=== PATIENT | male | born 1965 | race Caucasian/White ===

== ENCOUNTER 2018-10-02 14:59 | Emergency (ER) | payer MEDICAID ==
[~2018-10-02] VITALS: Ht 185.4 cm; Wt 90.9 kg
[2018-10-02] MEDS ORDERED: ASPI81 PO (15:08)
[2018-10-02] MEDS: KETOROLAC TROMETHAMINE 60 MG/2 ML VIAL IM ONE ×2 (15:46→15:55)
[2018-10-02] MEDS ORDERED: TraMADol HCL 50 MG TABLET PO ONE (16:00)
[2018-10-02 16:08] LABS: BASOPHILS % (AUTO) 0.7 % (0.0-2.0); EOSINOPHILS % (AUTO) 1.5 % (1.0-6.0); HEMATOCRIT 40.9 % (41-53); HEMOGLOBIN 13.5 g/dL (13.5-17.5); LYMPHOCYTES # (AUTO) 1.5 K/uL (1.0-4.8); LYMPHOCYTES % (AUTO) 33.3 % (22.0-44.0); MEAN CORPUSCULAR HEMOGLOBIN 30.2 pg (26.0-34.0); MEAN CORPUSCULAR HGB CONC 33.1 G/dL (31.0-37.0); MEAN CORPUSCULAR VOLUME 91 fL (80-100); MONOCYTES # (AUTO) 0.4 K/uL (0.1-1.0); MONOCYTES % (AUTO) 8.1 % (2.0-9.0); NEUTROPHILS # (AUTO) 2.6 K/uL (1.8-7.7); NEUTROPHILS % (AUTO) 56.4 % (40.0-70.0); PLATELET COUNT (AUTO) 146 K/uL (150-450); RED BLOOD CELL COUNT(AUTO) 4.48 MIL/uL (4.50-5.90); RED CELL DISTRIBUTION WIDTH 13.7 % (11.5-14.5)
[2018-10-02 16:16] LABS: ANION GAP 6 mmol/L (8-16); CALCIUM, TOTAL 8.8 mg/dL (8.8-10.5); CARBON DIOXIDE 29 mmol/L (22-29); CHLORIDE 106 mmol/L (98-107); CREATININE 1.15 mg/dL (0.60-1.30); GLOMERULAR FILTR. RATE CALC > 60 mL/min (>60); GLUCOSE,RANDOM 106 mg/dL (70-110); POTASSIUM 4.1 mmol/L (3.5-5.1); SODIUM SERUM 141 mmol/L (136-145); UREA NITROGEN, BLOOD 15 mg/dL (7-18)
[2018-10-02 16:22] LABS: ALANINE AMINOTRANSFERASE 18 U/L (12-78); ALBUMIN 3.1 g/dL (3.4-5.0); ALKALINE PHOSPHATASE 110 U/L (46-116); ASPARTATE AMINOTRANSFERASE 19 U/L (15-37); BILIRUBIN,TOTAL 0.5 mg/dL (0.1-1.0); TOTAL PROTEIN, SERUM 6.8 g/dL (6.4-8.2)
[2018-10-02 16:28] LABS: B-TYPE NATRIURETIC PEPTIDE 22 pg/mL (0-100)
[2018-10-02 18:40] VITALS: BP 132/80
[2018-10-02 19:10] LABS: PLATELET MORPHOLOGY COMMENT LARGE PLTS PRESENT
== END 2018-10-02 18:46 | disposition home or self-care (01) ==
LOC: EMS 15:00
DX: R60.0 Localized edema (principal); M79.89 Other specified soft tissue disorders; F17.210 Nicotine dependence, cigarettes, uncomplicated
CPT/HCPCS: 36415; 80053; 83880; 85025; 85379; 93970; 99284; 99406; J1885

== ENCOUNTER 2018-10-05 02:55 | Emergency (ER) | payer MEDICAID ==
[~2018-10-05] VITALS: Ht 185.4 cm; Wt 90.9 kg
[~2018-10-05 02:55] MED LIST: ASPI81 PO
[2018-10-05 03:33] LABS: BASOPHILS % (AUTO) 0.8 % (0.0-2.0); EOSINOPHILS % (AUTO) 1.4 % (1.0-6.0); HEMATOCRIT 40.7 % (41-53); HEMOGLOBIN 13.9 g/dL (13.5-17.5); LYMPHOCYTES # (AUTO) 1.7 K/uL (1.0-4.8); LYMPHOCYTES % (AUTO) 27.2 % (22.0-44.0); MEAN CORPUSCULAR HEMOGLOBIN 31.2 pg (26.0-34.0); MEAN CORPUSCULAR VOLUME 92 fL (80-100); MONOCYTES # (AUTO) 0.5 K/uL (0.1-1.0); MONOCYTES % (AUTO) 8.2 % (2.0-9.0); NEUTROPHILS # (AUTO) 3.9 K/uL (1.8-7.7); NEUTROPHILS % (AUTO) 62.4 % (40.0-70.0); PLATELET COUNT (AUTO) 150 K/uL (150-450); RED BLOOD CELL COUNT(AUTO) 4.44 MIL/uL (4.50-5.90); RED CELL DISTRIBUTION WIDTH 13.7 % (11.5-14.5)
[2018-10-05 03:41] LABS: ANION GAP 5 mmol/L (8-16); CARBON DIOXIDE 31 mmol/L (22-29); CHLORIDE 110 mmol/L (98-107); CREATININE 1.11 mg/dL (0.60-1.30); GLOMERULAR FILTR. RATE CALC > 60 mL/min (>60); GLUCOSE,RANDOM 119 mg/dL (70-110); POTASSIUM 3.9 mmol/L (3.5-5.1); SODIUM SERUM 146 mmol/L (136-145); UREA NITROGEN, BLOOD 20 mg/dL (7-18)
[2018-10-05 03:47] LABS: ALANINE AMINOTRANSFERASE 19 U/L (12-78); ALBUMIN 3.3 g/dL (3.4-5.0); ALKALINE PHOSPHATASE 117 U/L (46-116); ASPARTATE AMINOTRANSFERASE 15 U/L (15-37); BILIRUBIN,TOTAL 0.3 mg/dL (0.1-1.0); TOTAL PROTEIN, SERUM 6.9 g/dL (6.4-8.2)
[2018-10-05 03:52] LABS: B-TYPE NATRIURETIC PEPTIDE 36 pg/mL (0-100)
[2018-10-05 05:50] VITALS: BP 115/61
== END 2018-10-05 07:21 | disposition home or self-care (01) ==
LOC: EMS 02:59
DX: R07.89 Other chest pain (principal); R06.02 Shortness of breath; M79.89 Other specified soft tissue disorders; F17.210 Nicotine dependence, cigarettes, uncomplicated; Z79.82 Long term (current) use of aspirin
CPT/HCPCS: 93005

== ENCOUNTER 2018-10-11 22:42 | Emergency (ER) | payer MEDICAID ==
[~2018-10-11] VITALS: Ht 185.4 cm; Wt 86.4 kg
[2018-10-11 23:52] VITALS: BP 148/90
[2018-10-12] MEDS ORDERED: IBUPROFEN 600 MG TABLET PO ONE (02:45)
[2018-10-12] MEDS ORDERED: ACETAMINOPHEN 500 MG TABLET PO ONE (02:45)
== END 2018-10-12 06:30 | disposition home or self-care (01) ==
LOC: EMS 22:44
DX: R60.0 Localized edema (principal); J00 Acute nasopharyngitis [common cold]; F17.210 Nicotine dependence, cigarettes, uncomplicated; Z59.0 Homelessness

== ENCOUNTER 2018-11-17 17:21 | Emergency (ER) | payer MEDICAID ==
[~2018-11-17] VITALS: Ht 185.4 cm; Wt 97.7 kg
[2018-11-17] MEDS ORDERED: HYDROCODONE/ACETAMINOPHEN 5-325 MG TABLET PO ONE (19:30)
[2018-11-17] MEDS ORDERED: AMOX TR/POT CLAV 875 MG/125 MG TABLET PO ONE (19:30)
[2018-11-17 19:36] VITALS: BP 138/75
== END 2018-11-17 19:41 | disposition home or self-care (01) ==
LOC: EMS 17:22
DX: K04.7 Periapical abscess without sinus (principal); F17.210 Nicotine dependence, cigarettes, uncomplicated
CPT/HCPCS: 99406

== ENCOUNTER 2019-06-24 10:25 | Emergency (ER) | payer SELFPAY ==
[~2019-06-24] VITALS: Ht 185.4 cm; Wt 90.9 kg
[~2019-06-24 10:25] MED LIST changes: -ASPI81 PO; +IBUP-2071 PO
[2019-06-24 10:41] VITALS: BP 157/94
[2019-06-24] MEDS ORDERED: AMOX TR/POT CLAV 875 MG/125 MG TABLET PO ONE (11:15)
[2019-06-24] MEDS ORDERED: HYDROCODONE/ACETAMINOPHEN 5-325 MG TABLET PO ONE (11:15)
== END 2019-06-24 11:38 | disposition home or self-care (01) ==
LOC: EMS 10:27
DX: S02.5XXA Fracture of tooth (traumatic), initial encounter for closed fracture (principal); F17.210 Nicotine dependence, cigarettes, uncomplicated; X58.XXXA Exposure to other specified factors, initial encounter; Y93.89 Activity, other specified; Y92.89 Other specified places as the place of occurrence of the external cause; Y99.8 Other external cause status
CPT/HCPCS: 99406